=== PATIENT | male | born 1980 | race Caucasian/White ===

== ENCOUNTER 2022-11-09 00:46 | Emergency (ER) | payer OTHER ==
[~2022-11-09] VITALS: Ht 175.3 cm; Wt 90.7 kg
[2022-11-09] MEDS ORDERED: AMOX TR-K CLV1 EAC1 PO (00:56)
[2022-11-09 01:16] VITALS: BP 159/108
== END 2022-11-09 01:15 | disposition home or self-care (01) ==
LOC: ED 00:46
DX: S02.5XXA Fracture of tooth (traumatic), initial encounter for closed fracture (principal); X58.XXXA Exposure to other specified factors, initial encounter
CPT/HCPCS: 96372; 99282; A9270; J2270

== ENCOUNTER 2022-12-18 07:45 | Emergency (ER) | payer OTHER ==
[~2022-12-18] VITALS: Ht 177.8 cm; Wt 81.2 kg
[~2022-12-18 07:45] MED LIST: AMOX TR-K CLV1 EAC1 PO; NORVASC5 MG PO
--- OUTSIDE RECORDS SUMMARY | 2022-12-18 07:47 | XMS ---
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 - Patient with suicidal and/or homicidal ideations eloped. - Patient eloped with IV in place. Details: Patient LWBS CRITERIA MET - 6 ED Visits in 6 Months - Group Notification - PDMP - [facility] - 2 Visits in 30 Days CARE PROVIDERS -Joey- Dentist: Exercise Physiology Professor [facility] PHONE: [phone] TARAH [facility] Current PHONE: [phone] Jordon has no Care Guidelines for this patient. E.D. VISIT COUNT (12 MO.) 4 [facility] (Mika Brennan) TOTAL 6 NOTE: Visits indicate total known visits. ED/UCC VISIT TRACKING (12 MO.) 12/18/2022 07:46 [facility] [place] TYPE: Emergency COMPLAINT: - MEDICATION REFILL 11/21/2022 10:22 [facility] [place] TYPE: Emergency COMPLAINT: - ANXIETY 11/17/2022 16:49 [facility] [place] [facility] [place] TYPE: Emergency COMPLAINT: - ANXIETY DIAGNOSES: - Alcohol dependence with withdrawal, unspecified - Essential (primary) hypertension 11/09/2022 00:47 [facility] [place]: Emergency COMPLAINT: - DENTAL PAIN DIAGNOSES: - Exposure to other specified factors, initial encounter - Fracture of tooth (traumatic), initial encounter for closed fracture - Other specified disorders of teeth and supporting structures [facility]22 [facility] Emergency DIAGNOSES: - Urinary tract infection, site not specified - Dysuria - headaches, body pain 08/14/2022 12:24 [facility]: Emergency DIAGNOSES: - Fracture of tooth (traumatic), initial encounter for closed fracture - Other specified disorders of teeth and supporting structures - Dental Pain - right side tooth pain, cheek swelling INPATIENT VISIT TRACKING (12 MO.) No inpatient visits to display in this time frame [email or web address]
[2022-12-18] MEDS ORDERED: CLONAZEPAM0.5 MG PO ×2 (07:59→08:18)
[2022-12-18 08:31] VITALS: BP 160/99
== END 2022-12-18 08:42 | disposition home or self-care (01) ==
LOC: ED 07:45
DX: Z76.0 Encounter for issue of repeat prescription (principal); F13.239 Sedative, hypnotic or anxiolytic dependence with withdrawal, unspecified
CPT/HCPCS: 99281

== ENCOUNTER 2022-12-31 08:47 | Emergency (ER) | payer OTHER ==
[~2022-12-31] VITALS: Ht 177.8 cm; Wt 79.8 kg
[~2022-12-31 08:47] MED LIST changes: +CLONAZEPAM0.5 MG PO
--- OUTSIDE RECORDS SUMMARY | 2022-12-31 08:48 | XMS ---
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 - Patient with suicidal and/or homicidal ideations eloped. - Patient eloped with IV in place. Details: Patient LWBS CRITERIA MET - 6 ED Visits in 6 Months - Group Notification - PDMP - [facility] - 2 Visits in 30 Days CARE PROVIDERS -Joey- Dentist: Ticket Machine Operator [facility] PHONE: [phone] TARAH [facility] Current PHONE: [phone] Jordon has no Care Guidelines for this patient. E.D. VISIT COUNT (12 MO.) [facility] TOTAL 8 NOTE: Visits indicate total known visits. ED/UCC VISIT TRACKING (12 MO.) 12/31/2022 08:47 [facility] [place] TYPE: Emergency COMPLAINT: - ANXIETY ATTACK 12[facility]30[facility]2022 19:[facility] DIAGNOSES: - Alcohol use, unspecified with withdrawal, uncomplicated - Panic disorder [episodic paroxysmal anxiety] - Anxiety - blood pressure previous stroke 12/18/2022 07:46 [facility] [place] TYPE: Emergency COMPLAINT: - MEDICATION REFILL DIAGNOSES: - Encounter for issue of repeat prescription - Sedative, hypnotic or anxiolytic dependence with withdrawal, unspecified 11/21/2022 10:22 [facility] [place] TYPE: Emergency COMPLAINT: - ANXIETY 11/17/2022 16:49 [facility] [place] TYPE: Emergency COMPLAINT: - ANXIETY DIAGNOSES: - Alcohol dependence with withdrawal, unspecified - Essential (primary) hypertension 11/09/2022 00:47 [facility] [place] TYPE: Emergency COMPLAINT: - DENTAL PAIN DIAGNOSES: - Exposure to other specified factors, initial encounter - Fracture of tooth (traumatic), initial encounter for closed fracture - Other specified disorders of teeth and supporting structures 09/26/2022 15:49 [facility] [place] TYPE: Emergency DIAGNOSES: - Urinary tract infection, site not specified - Dysuria - headaches, body pain 08/14/2022 12:24 [facility] [place] ([place]) TYPE: Emergency DIAGNOSES: - Fracture of tooth (traumatic), initial encounter for closed fracture - Other specified disorders of teeth and supporting structures - Dental Pain - right side tooth pain, cheek swelling INPATIENT VISIT TRACKING (12 MO.) No inpatient visits to display in this time frame [email or web address]
[2022-12-31] MEDS ORDERED: CLONAZEPAM0.5 MG PO (09:25)
[2022-12-31 09:42] VITALS: BP 168/105
== END 2022-12-31 09:44 | disposition home or self-care (01) ==
LOC: ED 08:47
DX: F41.9 Anxiety disorder, unspecified (principal); F10.10 Alcohol abuse, uncomplicated; Z79.899 Other long term (current) drug therapy
CPT/HCPCS: 99283